=== PATIENT | female | born 1995 | race Caucasian/White ===

== ENCOUNTER 2016-09-08 15:06 | Emergency (ER) | payer SELFPAY ==
[~2016-09-08] VITALS: Ht 157.5 cm; Wt 53.5 kg
--- NOTE | 2016-09-08 15:25 | NUR ---
BROUGHT IN BY EMS FOR MEDICATION OVERDOSE. PT VOMITED TWICE SINCE TAKING THE PILLS. PT ADAMANTLY DENIES THAT SHE WAS TRYING TO KILL HERSELF OR HARM HERSELF IN ANY WAY. SHE STATES SHE WAS "JUST TRYING TO GET RID OF MY BAD HEADACHE". SHE IS NEAR THE NURSES STATION WITH CLOSE AND CONSTANT OBERVATION. MIRZA IS HERE NOW SPEAKING TO PATIENT.
[2016-09-08] MEDS ORDERED: ONDANSETRON 4 MG/2 ML VIAL IV ONE (15:45)
[2016-09-08] MEDS ORDERED: CHARCOAL ACTIVATED (WITHOUT SORBITOL) 50 G/240 ML BOTTLE PO ONE (15:45)
[2016-09-08 15:47] LABS: *BILIRUBIN,URIN NEGATIVE (NEGATIVE); *BLOOD, URINE Trace-lysed (NEGATIVE); *COLOR,URINE YELLOW (YELLOW); *KETONES,URINE NEGATIVE (NEGATIVE); *PROTEIN,URINE NEGATIVE (NEGATIVE); LEUKOCYTE ESTERASE ,URINE 1+ (NEGATIVE); NITRITE, URINE NEGATIVE (NEGATIVE); UGLUCOSE NEGATIVE (NEGATIVE)
[2016-09-08 15:49] LABS: *URINE HCG, QUAL NEGATIVE (NEGATIVE)
[2016-09-08 15:57] LABS: *CLARITY,URINE SLIGHTLY HAZY (CLEAR)
[2016-09-08 15:58] LABS: BACTERIA,URINE FEW /HPF (NONE SEEN); MUCUS,URINE MODERATE /LPF (0-FEW); SQUAMOUS EPITHELIAL CELL,UR MODERATE /HPF (NONE SEEN)
[2016-09-08] MEDS ORDERED: IV NS 1000 ML 1,000 ML IV ONE (16:00)
[2016-09-08] MEDS ORDERED: ONDANSETRON 4 MG/2 ML VIAL ONE (16:01)
[2016-09-08] MEDS ORDERED: CHARCOAL ACTIVATED (WITHOUT SORBITOL) 50 G/240 ML BOTTLE ONE (16:02)
[2016-09-08 16:07] LABS: ACETAMINOPHEN 5.7 ug/mL (10-30); ALANINE AMINOTRANSFERASE 15 U/L (14-59); ALBUMIN 4.2 g/dL (3.4-5.0); ALKALINE PHOSPHATASE 55 U/L (50-136); ASPARTATE AMINOTRANSFERASE 25 U/L (15-37); BILIRUBIN,TOTAL 0.5 mg/dL (0.2-1.0); CALCIUM 9.2 mg/dL (8.5-10.1); CARBON DIOXIDE 28 mmol/L (21-32); CHLORIDE 105 mmol/L (98-107); CREATINE KINASE, TOTAL 62 U/L (26-192); CREATININE 0.8 mg/dL (0.6-1.3); ETHANOL < 3 MG/DL (0-0); GFR 91 mL/min (>60); GLUCOSE 102 mg/dL (74-106); POTASSIUM 4.3 mmol/L (3.5-5.1); SODIUM SERUM 141 mmol/L (136-145); TOTAL PROTEIN, SERUM 8.1 g/dL (6.4-8.2); UREA NITROGEN, BLOOD 7 mg/dL (7-18)
[2016-09-08 16:12] LABS: BASOPHILS % (AUTO) 0.4 % (0.0-2.0); EOSINOPHILS % (AUTO) 0.1 % (0.0-7.0); HEMATOCRIT 40.5 % (35.0-45.0); HEMOGLOBIN 13.1 g/dL (11.5-15.5); LYMPHOCYTES # (AUTO) 0.9 K/uL (0.8-4.8); LYMPHOCYTES % (AUTO) 11.6 % (20.5-74.5); MEAN CORPUSCULAR HEMOGLOBIN 28.2 uug (27.0-31.0); MEAN CORPUSCULAR HGB CONC 32 g/dL (32.0-37.0); MEAN CORPUSCULAR VOLUME 87.2 fL (77.0-95.0); MONOCYTES # (AUTO) 0.4 K/uL (0.1-1.30); MONOCYTES % (AUTO) 6.1 % (0-11); NEUTROPHILS # (AUTO) 6.1 K/uL (1.8-8.9); NEUTROPHILS % (AUTO) 81.8 % (31.5-64.5); PLATELET COUNT (AUTO) 306 K/uL (150-450); RED BLOOD CELL COUNT(AUTO) 4.64 MIL/uL (3.90-5.30); RED CELL DISTRIBUTION WIDTH 13.3 % (11.5-14.5); WHITE BLOOD COUNT (AUTO) 7.4 K/uL (4.5-14.5)
--- NOTE | 2016-09-08 19:06 | NUR ---
PT WAS MEDICALLY CLEARED BY DR CADE. PRINCESS HUNG CAME TO EVALUATE THE PT.
[2016-09-08 19:16] LABS: CREATINE KINASE MB 0.5 ng/mL (0-5.0)
--- NOTE | 2016-09-08 19:17 | NUR ---
CARED ENDORSED BY DAYSHIFT NURSE, ERICA AT BEDSIDE FOR PSYCH ASSESSMENT.
--- NOTE | 2016-09-08 19:35 | NUR ---
PT CLEARED TO GO HOME BY LPS...
--- NOTE | 2016-09-08 20:36 | NUR ---
Patient discharged to home in stable conditon. Written and verbal after care instructions given. Patient verbalizes understanding of instructions. pt walked out of ER unassisted with family member and belongings at side...
[2016-09-08 20:37] VITALS: BP 126/97
== END 2016-09-08 20:38 | disposition home or self-care (01) ==
LOC: ER 15:10
DX: T39.1X2A Poisoning by 4-Aminophenol derivatives, intentional self-harm, initial encounter (principal); Y92.89 Other specified places as the place of occurrence of the external cause
CPT/HCPCS: 36415; 74022; 80053; 81001; 82550; 82553; 84484; 84703; 85025; 85610; 93005; 96361; 96374; 99285; A4663; G0480; G0481; G0482; J2405; J7030; 70030-TC; G6040-TC